=== PATIENT | female | born 1975 | race American Indian/Alaskan Native ===

== ENCOUNTER 2020-06-30 11:15 | Day surgery (SDC) | payer MEDICAID ==
--- NOTE | 2020-06-21 10:08 | History and Physical Report ---
History of Present Illness Date of examination: 06/30/20 History of present illness: 45 yo is having issues with POP, needing to reduce it to have BM. PT was found to have a grade 1-2 rectocele on exam. No menstrual or issues. PT did not like having the pessary. Past History Past Medical History: no pertinent history Past Surgical History: other (bunion) Social history: no significant social history Medications and Allergies Allergies Allergy/AdvReac Type Severity Reaction Status Date / Time No Known Allergies Allergy Unverified 06/26/20 15:06 Home Medications Medication Instructions Recorded Confirmed Last Taken Type Adult Multi Gummies 1 dose PO 3XW 06/26/20 06/30/20 06/29/20 History Active Meds: see EMR charting Review of Systems All systems: negative (except HPI) - Vital Signs Vital signs: see EMR charting - Physical Exam Cardiovascular: Regular rate, No murmurs Lungs: Positive: Clear to auscultation, Normal air movement Genitourinary (Female): Positive: normal external genitalia Vulva: both: normal Vagina: Positive: normal moisture, rectocele (Grade 1-2 rectocele). Negative: cystocele Cervix: Negative: lesion, discharge Uterus: Positive: normal size, normal contour Adnexa: both: normal Results Result Diagrams: 06/30/20 12:10 All other labs normal. Assessment and Plan - Patient Problems (1) Rectocele Current Visit: No Status: Acute Plan to address problem: PT is for posterior colporrhaphy on 06/30. PT already has Rx for Colace to take post op at home. Patient fully consented for the surgery. Risks, benefits, and alternatives were all discussed with the patient including risk of bleeding, infection, and potential for injury. Patient understands and accepts these risks. Patient agrees to proceed with surgery. All questions were answered.
[2020-06-30] MEDS ORDERED: ONDANSETRON 4 MG/2 ML INJ IV PRN (12:26)
[2020-06-30] MEDS ORDERED: HYDROmorphone 1 MG/1 ML INJ IV PRN ×2 (12:26)
[2020-06-30 12:27] LABS: Hematocrit 29.9 % (30.3-42.9); Hemoglobin 9.8 gm/dl (10.1-14.3)
--- NOTE | 2020-06-30 12:27 | Anesthesia Day of Surgery ---
Anesthesia Day of Surgery - Day of Surgery Patient Examined: Yes Patient H&P Reviewed: Yes Patient is NPO: Yes
--- NOTE | 2020-06-30 12:28 | Anesthesia Consultation ---
Anesthesia Consult and Med Hx Date of service: 06/30/20 - Airway Anesthetic Teeth Evaluation: Good (Braces upper and lower) - Pre-Operative Health Status ASA Pre-Surgery Classification: ASA2 Proposed Anesthetic Plan: General - Pulmonary Hx Smoking: No (MARIJUANA) Hx Asthma: No COPD: No Hx Pneumonia: No Hx Sleep Apnea: No - Cardiovascular System Hx Hypertension: No Hx Heart Attack/AMI: No Hx Pacemaker: No Hx Internal Defibrillator: No Hx Heart Murmur: No - Central Nervous System Hx Seizures: No Hx Back Pain: No Hx Psychiatric Problems: No - Endocrine Hx Cirrhosis: No Hx Liver Disease: No - Hematic Hx Anemia: Yes Hx Sickle Cell Disease: No - Other Systems Hx Alcohol Use: Yes (OCC. BEER) Hx Substance Use: Yes (MARIJUANA) Hx Cancer: No
[2020-06-30] MEDS ORDERED: CELECOXIB 200 MG CAP PO NR (13:00)
[2020-06-30] MEDS ORDERED: MIDAZOLAM 2 MG/2 ML INJ IV NR (13:00)
[2020-06-30] MEDS ORDERED: ACETAMINOPHEN 500 MG TAB PO ONE (13:00)
[2020-06-30] MEDS ORDERED: MAGNESIUM OXIDE 400 MG TAB PO ONE (13:26)
[2020-06-30] MEDS ORDERED: LACTATED RINGERS 1,000 ML IV SCH (13:30)
[2020-06-30] MEDS ORDERED: propofoL 200 MG/20 ML VIAL IV ONE ×2 (13:36→15:06)
[2020-06-30] MEDS ORDERED: fentaNYL 100 MCG/2 ML INJ ONE (13:36)
[2020-06-30] MEDS ORDERED: ePHEDrine SULFATE 50 MG/1 ML INJ ONE (14:08)
[2020-06-30] MEDS ORDERED: ONDANSETRON 4 MG/2 ML INJ ONE (14:30)
[2020-06-30] MEDS ORDERED: GLYCOPYRROLATE 0.4 MG/2 ML INJ ONE (14:36)
[2020-06-30] MEDS ORDERED: KETOROLAC 30 MG/1 ML INJ ONE (14:36)
[2020-06-30] MEDS ORDERED: dexAMETHasone 20 MG/5 ML VIAL ONE (14:36)
[2020-06-30] MEDS ORDERED: LIDOCAINE MPF (2%) 20 MG/1 ML VIAL 5 ML ONE (14:36)
--- NOTE | 2020-06-30 15:25 | Post Operative Note ---
Date of procedure: 06/30/20 Pre-op diagnosis: Rectocele Post-op diagnosis: same Findings: Patient with a grade 1-2 rectocele on exam. No other anomalies in the vagina noted. Procedure: Procedure: Posterior colporrhaphy with perineorrhaphy Patient taken to the operating room and prepped and draped in usual fashion. Attention was first turned to the perineum where a triangular incision was made and the excess skin was excised out. At this point, a rectal exam was done to clearly demarcate the rectocele. This was done a few times during the case to verify location and eventually it is repair. Allis clamp placed at the apex of where the repair would be on the vaginal mucosa. The vaginal mucosa was then undermined with Metzenbaum scissors and vaginal mucosa was incised up to the apex of the desired rectocele repair. At this point Allis clamps were placed along the vaginal mucosa that was incised on both sides. Then the rectocele tissue was dissected off of the vaginal mucosa on both sides with mostly gentle blunt dissection. A few small areas of sharp dissection was required. At this point, good hemostasis was noted and the rectocele was nicely from the vaginal mucosa. At this point, using 2-0 Vicryl, the surrounding endopelvic fascia was plicated over the rectocele to reduce it. This was done with multiple interrupted stitches until the rectocele was reduced and covered in its entirety. At this point, the excess vaginal mucosa on both sides was trimmed. At this point, the vaginal mucosal incision was reapproximated together with 2-0 Vicryl in a running fashion. At this point, attention was turned to finishing the perineorrhaphy. The peritoneum was reapproximated with 2-0 Vicryl in the usual running fashion including subcuticular closure with that same running 2-0 Vicryl stitch. At this point, good hemostasis was noted and the procedure was concluded. Rectal exam was done 1 last time with good integrity noted and no evidence of any suture in the rectum. Kerlix vaginal packing was then placed. Patient tolerated the procedure well. All instrument lap counts were correct. Patient taken to the recovery room in stable condition. Anesthesia: GETA Surgeon: CARLOS SIGALA Window Sash Installer: STEFANI OLIVO Estimated blood loss: minimal Pathology: none Condition: stable Disposition: PACU
--- NOTE | 2020-06-30 15:26 | Short Stay Summary ---
Short Stay Documentation Date of service: 06/30/20 Narrative H&P: Patient is status post a posterior colporrhaphy and perineorrhaphy on 06/30/2020. Surgery was uncomplicated and successful. Please see H&P and operative report for details. Patient sent home with a vaginal packing and instructions to remove it the following morning. Patient fully counseled regarding this. Patient to otherwise follow-up in the office 6 weeks postop. Nothing in the vagina until that time. Patient also sent home with [id number] Colace to take. - History H&P: dictated Social history: no significant social history - Allergies and Medications Current Medications: Allergies No Known Allergies Allergy (Unverified 06/26/20 15:06) Home Medications Medication Instructions Recorded Confirmed Last Taken Type Adult Multi Gummies 1 dose PO 3XW 06/26/20 06/30/20 06/29/20 History Active Medications Celecoxib (Celecoxib 200 Mg Cap) 400 mg PO PREOP NR Stop: 07/01/20 12:59 Last Admin: 06/30/20 12:45 Dose: 400 mg Documented by: Hydromorphone HCl (Hydromorphone 1 Mg/1 Ml Inj) 0.25 mg IV Q10MIN PRN PRN Reason: Pain, Moderate (4-6) Stop: 07/01/20 12:25 Hydromorphone HCl (Hydromorphone 1 Mg/1 Ml Inj) 0.5 mg IV Q10MIN PRN PRN Reason: Pain , Severe (7-10) Stop: 07/01/20 12:25 Lactated Ringer's (Lactated Ringers) 1,000 mls @ 125 mls/hr IV DIRECT ALFONSO Last Admin: 06/30/20 12:50 Dose: 125 mls/hr Documented by: Midazolam HCl (Midazolam 2 Mg/2 Ml Inj) 2 mg IV PREOP NR Stop: 06/30/20 23:59 Last Admin: 06/30/20 12:53 Dose: 2 mg Documented by: Ondansetron HCl (Ondansetron 4 Mg/2 Ml Inj) 4 mg IV ONCE PRN PRN Reason: Nausea And Vomiting - Disposition Condition at discharge: Stable Disposition: DC-01 TO HOME OR SELFCARE - Discharge Diagnoses (1) Rectocele Status: Acute Short Stay Discharge Plan Follow up with: PRIMARY CARE, [Primary Care Provider] - 7 Days
--- NOTE | 2020-06-30 17:06 | Post Anesthesia Evaluation ---
- Post Anesthesia Evaluation Patient Participated: Yes Airway Patent: Yes Stable Respiratory Function: Yes Nausea/Vomiting: No Temp > 96.8F: Yes Pain Manageable: Yes Adequeate Hydration: Yes Anesthesia Complications: No Block Receding Appropriately: Not Applicable Patient on Ventilator: No
[2020-06-30 17:41] VITALS: BP 113/71
== END 2020-06-30 17:30 | disposition home or self-care (01) ==
LOC: OR 11:15
PROVIDERS: ATTEND Obstetrics & Gynecology
DX: N81.6 Rectocele (principal); D64.9 Anemia, unspecified; Z79.899 Other long term (current) drug therapy; Z87.440 Personal history of urinary (tract) infections; Z72.89 Other problems related to lifestyle; Z98.890 Other specified postprocedural states
CPT/HCPCS: 36415; 57250; 81025; 85014; 85018; J1100; J1170; J1885; J2250; J2405; J2704; J3010; J7120